=== PATIENT | female | born 1995 | race Asian ===

== ENCOUNTER 2023-04-30 16:55 | Emergency (ER) | payer SELFPAY ==
[~2023-04-30 16:55] MED LIST: Iopamidol 370 76% 100 ML VIAL ONE
[2023-04-30 18:05] LABS: #Basophils 0.1 10x3/uL (0.0-0.2); #Eosinphils 0.3 10x3/uL (0.0-0.5); #Monocytes 0.4 10x3/uL (0.0-1.1); #Neutrophils 4.7 10x3/uL (1.5-8.4); %Basophils 0.9 % (0.0-2.0); %Eosinophils 3.4 % (0.0-6.0); %Lymphocytes 31.3 % (18.0-47.0); %Monocytes 5.4 % (0.0-10.0); %Neutrophils 58.9 % (40.0-75.0); Hematocrit 40.2 % (34.9-44.5); Hemoglobin 13.8 g/dL (12.0-15.5); Mean Corpuscular HGB CONC 34.3 g/dL (32.0-36.0); Mean Corpuscular Hemoglobin 30.2 pg (27.0-33.0); Mean Platelet Volume 10.8 fl (7.4-10.4); Platelet Count 226 10x3/uL (150-450); RBC Distribution Width 11.6 % (11.5-14.5); Red Blood Cell (RBC) Count 4.57 10x6/uL (3.90-5.03); White Blood Cell (WBC) Count 7.9 10x3/uL (3.5-10.5)
[2023-04-30 18:07] LABS: BHCG - Serum Negative (NEGATIVE); Pregs Control Background? CLEAR/WHITE (CLR/WHITE); Pregs Control Bar Appear? YES (CONTROL BAR)
[2023-04-30 18:16] LABS: ALT (SGPT) 9 U/L (8-55); AST (SGOT) 12 U/L (5-34); Albumin 4.3 g/dL (3.5-5.0); Alkaline Phosphatase 65 U/L (40-110); Anion Gap 11 mmol/L (10-20); BUN (Urea Nitrogen) 6 mg/dL (7.0-18.7); Bilirubin, Total 0.3 mg/dL (0.2-1.2); Calc. Creatinine Clearance 0 mL/min (70-130); Calcium 8.8 mg/dL (7.8-10.44); Carbon Dioxide 24 mmol/L (22-29); Chloride 106 mmol/L (98-107); Estimated GFR 100; Globulin 2.7 g/dL (2.4-3.5); Glucose 95 mg/dL (70-105); Potassium 4.2 mmol/L (3.5-5.1); Sodium 137 mmol/L (136-145)
[2023-04-30 18:21] LABS: Troponin I Less than 0.010 ng/mL (< 0.028)
== END 2023-04-30 19:10 | disposition home or self-care (01) ==
LOC: CSHERS 16:55
DX: R06.02 Shortness of breath (principal); R07.81 Pleurodynia
CPT/HCPCS: 36415; 71275; 80053; 84484; 84703; 85025; 93005; Q9967